=== PATIENT | male | born 1990 | race Caucasian/White ===

== ENCOUNTER 2024-06-07 13:07 | Emergency (ER) | payer OTHER, SELFPAY ==
[2024-06-07 13:18] VITALS: BP 147/93
[2024-06-07 13:44] LABS: % Basophils 0.5 % (0-2); % Eosinophils 1.5 % (0-6); % Immature Granulocytes 0.2 % (0-0.5); % Lymphocytes 20.3 % (20.5-51.1); % Neutrophils 70.5 % (42.2-75.2); Absolute Eosinophils 0.1 10^3/uL (0-0.7); Absolute Lymphocytes 1.2 10^3/uL (1.2-3.4); Absolute Monocytes 0.4 10^3/uL (0.1-0.6); Absolute Neutrophils 4.1 10^3/uL (1.4-6.5); Hemoglobin 15.3 g/dL (13.0-18.0); Mean Corp Hgb Conc. 36.4 g/dL (33.0-37.0); Mean Corpuscular Hgb 31.7 pg (27.0-31.0); Mean Corpuscular Volume 87.1 fL (80.0-94.0); Mean Platelet Volume 10.8 fL (7.4-10.4); Nucleated Red Blood Cells % 0 % (-); Platelet Count 242 10^3/uL (130-400); Red Blood Cell Count 4.82 10^6/uL (4.70-6.10); Red Cell Dist. Width 11.7 % (11.5-14.5); White Blood Cell Count 5.9 10^3/uL (4.8-10.8)
[2024-06-07 13:58] LABS: ALT (SGPT) 51 U/L (0-50); AST (SGOT) 31 U/L (17-59); Albumin 4.7 g/dl (3.5-5.0); Alkaline Phosphatase 68 U/L (38-126); Blood Urea Nitrogen 15 mg/dl (9-20); Calcium 9.3 mg/dl (8.4-10.2); Carbon Dioxide 26 mmol/L (22-30); Chloride 107 mmol/L (98-107); Glucose 126 mg/dl (70-99); Sodium 141 mmol/L (135-145); Total Bilirubin 0.7 mg/dl (0.2-1.3); Total Protein 7.4 g/dl (6.3-8.2); eGFR > 60.00
[2024-06-07 14:00] VITALS: BP 132/93
[2024-06-07 14:07] VITALS: BMI 33.1
[2024-06-07 14:09] VITALS: BP 132/93
[2024-06-07 14:29] LABS: Lipase 70 U/L (23-300)
--- NOTE | 2024-06-07 15:06 | ED.GENMED ---
History of Present Illness
General
Chief Complaint: Abdominal Pain
Source: patient
Time Seen by Provider: 06/07/24 14:13
History of Present Illness
History of Present Illness:
33-year-old male with no past medical history presenting to the emerged from with right upper quadrant pain for the past 5 days. Patient states that 5 days ago he started to develop pain in the right upper quadrant. It is constant but sneezing and
occasionally taking in a deep breath. It is not worse with food. No nausea or vomiting. Able to tolerate p.o. no fevers or chills. No history of gallbladder problems. He does drink alcohol however he last drink 2 weeks ago. No recent travel
hemoptysis chest pain shortness of breath leg swelling or history of blood clot. No coughing.
Phy Exam
Physical Exam
Physical Exam:
GENERAL: in no acute distress
HEENT: normocephalic, extraocular movements intact, moist oral mucosa
NECK: normal inspection
RESPIRATORY: no respiratory distress, clear to auscultation bilaterally
CARDIOVASCULAR: regular rate and rhythm
ABDOMEN/: soft, non-distended, right upper quadrant tenderness no rebound or guarding
EXTREMITIES: non-tender, no edema/swelling
NEUROLOGIC: awake and alert, moves all extremities
SKIN: warm
Course
Orders/Labs/Results
Orders:
Orders
06/07/24 13:19
US Abdomen Complete/Upper Urgent
Comment:
Reason For Exam: RUQ pain x1 week
06/07/24 13:22
Complete Blood Count/With Diff Urgent
Comprehensive Metabolic Panel Urgent
Lipase Urgent
Abnormal Lab Results
06/07/24
13:22
MCH 31.7 H pg
(27.0-31.0)
MPV 10.8 H fL
(7.4-10.4)
Lymphocytes % 20.3 L %
(20.5-51.1)
Glucose 126 H mg/dl
(70-99)
ALT 51 H U/L
(0-50)
06/07/24 13:22
06/07/24 13:22
Vital Signs
Initial and Last Documented VS:
Initial Vital Signs
Temp Pulse Resp BP Pulse Ox
98.1 F 79 17 147/93 97
06/07/24 13:18 06/07/24 13:18 06/07/24 13:18 06/07/24 13:18 06/07/24 13:18
Last Documented Vital Signs
Temp Pulse Resp BP Pulse Ox
97.9 F 63 18 132/93 97
06/07/24 14:00 06/07/24 14:00 06/07/24 14:00 06/07/24 14:09 06/07/24 14:00
MDM/Problems Addressed
Differential Diagnosis Includes:
33-year-old man with history of reflux presenting to the emergency department with right upper quadrant pain for the past week. Vitals are unremarkable and exam does show right upper quadrant tenderness. Concern for biliary etiology versus
hepatitis. Considered PE or pneumonia though less likely as has no signs or symptoms to. He is PERC negative. Will obtain blood work including CMP as well as right upper quadrant ultrasound
*Critical Care Note
Total Time (30-74mins, 75-104mins- exclusive of procedures): Not Applicable
Update Note
Update Note:
Ultrasound concerning for hepatic steatosis. Blood work does show slightly elevated ALT patient is tolerating p.o. Will discharge with GI follow-up. All questions answered patient stable for discharge
ED Attending Note
-
Portions of this chart may have been created with voice recognition software.� Occasional wrong word or��sound alike� substitutions may have occurred due to the inherent limitations of voice recognition software.
Discharge Plan
Departure
Patient Disposition: Home (Routine Discharge)
Date of Disposition: 06/07/24
Time of Disposition: 15:29
Patient with high blood pressure during this ER visit?: No
Discharge Problem:
Hepatic steatosis
Instructions: Abdominal Pain
Referrals:
Gilberto Vargas MD [Family Provider] -
Jens Alexis MD [Active] -
Interventions
Interventions:
*Risk Screen - Suicide Last Done: 06/07/24 13:18
*General Assessment Last Done: 06/07/24 13:18
*Neglect/Abuse Screening Last Done: 06/07/24 13:18
*ED COVID-19 Vaccine History Last Done: 06/07/24 13:18
JP-Pfzrpv-Oalnpblyad Assessment Last Done: 06/07/24 14:07
Discharge Date and Time
Print Language: SPANISH
[2024-06-07 15:38] VITALS: BP 119/76
== END 2024-06-07 15:39 | disposition home or self-care (01) ==
LOC: EMR 13:07
PROVIDERS: Physician Assistant; EMERGENCY PHYSICIAN Student in an Organized Health Care Education/Training Program; FAMILY PHYSICIAN Internal Medicine
DX: K76.0 Fatty (change of) liver, not elsewhere classified (principal)
CPT/HCPCS: 99284; 76700; 80053; 83690; 85025